=== PATIENT | female | born 2005 | race Caucasian/White ===

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

== ENCOUNTER 2025-06-04 14:56 | Emergency (ER) | payer OTHER ==
[~2025-06-04] VITALS: Ht 160 cm; Wt 54.5 kg
--- NOTE | 2025-06-04 17:34 | Physician Documentation ---
History of Present Illness ~ Chief Complaint: Finger pain Stated Complaint: FINGER LAC Time Seen by MD: 16:16 OK to notify your PCP?: Yes Primary Medical Doctor: none Source: patient Mode of Arrival: POV Exam Limitations: no limitations HPI 19-year-old female who is left-handed presenting with laceration to her left index finger. She states this occurred when she was chopping up food prior coming to the ER. It was difficult for her to get the bleeding to stop but now that the bleeding has stopped she realizes it is not as bad as she initially thought it was. Her tetanus immunization is up-to-date within the last 10 years. No decreased range motion of her finger. No injury to her nail plate. No other concerns or complaints. Patient does work in the food industry but states that this occurred at home not while at work. She is concerned about going to work tonight at 2:00 a.m. in his requesting a work note. Tetanus within 5 years: Yes Medication Reconciliation Allergies: Coded Allergies: No Known Allergies (Unverified , 10/13/08) Past Medical History Past Medical History: Extremity Fracture Past Surgical History: orthopedic surgeries Alcohol Use: None Drug Use: none Lives In: Home Review of Systems All Other Systems at this time: Reviewed and Negative Physical Exam Vital Signs: Temperature: 97.5, Source: Temporal, Heart Rate: 92, Respiratory Rate: 18, BP: 122/70, Pulse Oximetry: 99, Weight: 54.550 Oxygen Flow Rate: 0 Physical Exam General Appearance: Alert, WD/WN. NAD. HEENT: NCAT, PERRL, EOMI. Neck: Supple, trachea midline. Cardiovascular: RRR. No m/r/g. Lungs: CTAB. Breathing unlabored Extremities: Normal inspection. No edema. Skin: Warm/dry, normal color, left index finger: 5 mm vertical laceration just lateral to the lateral side of the nail plate, nail plate intact, no surrounding ecchymosis, edema or erythema, areas nontender, active range motion of index finger is full. Neurological: Alert and oriented x4, normal gait. Psychiatric: Affect congruent with mood. Progress Results/Orders Results/Orders Orders - SYDNEE TEJEDA Dermabond To Bedside (06/04/25 ) Vital Signs 06/04/25 06/04/25 15:06 17:52 Temp 97.5 97.5 Pulse 92 78 Resp 18 14 B/P (MAP) 122/70 124/80 Pulse Ox 99 96 O2 Flow Rate 0 Medical Decision Making Additional information obtaine: N/A Findings n/a General Diff Dx:Considerations: Unlikely: Other Shoulder Diff Dx:Consideration: Unlikely: Other Elbow Diff Dx:Considerations: Unlikely: Other Wrist Diff Dx:Considerations: Unlikely: Other Hand Diff Dx:Considerations: Unlikely: Other Finger Diff Dx:Considerations: Include: Abrasion, Cellulitis, Contusion, Dislocation, Fracture, Hematoma, Laceration, Neurovascular injury, Open fracture, Subungual hematoma, Other Departure Time of Disposition: 18:18 Disposition: 01 HOME / SELF CARE / HOMELESS Impression: Primary Impression: Laceration Condition: Stable Discharge Instructions: Laceration Care, Adult, [id number] Additional Instructions: do not get wet x 24-48 hours generally with dermabond and steri strips you want to wait 72hours to get wet, but due to size of laceration not being very big it should be okay after about 48hours if any signs or symptoms of infection return to er Departure Forms: Excuse form Work or School Excused From: Work Excuse beginning now through the following date: Jun 05, 2025 May Return but still avoid physical Activity from now until: Jun 06, 2025 Referrals: NO PRIMARY CARE PROVIDER (PCP) Education Educated: Patient Educated regarding: diagnosis, treatment, need for follow up Signature Scribe Signature: x Attestation: SYDNEE Navarrete Jun 04, 2025 17:34
[2025-06-04 17:52] VITALS: BP 124/80; PULSE 78; RESP 14; TEMP 97.5; O2SAT 96
== END 2025-06-04 17:54 | disposition home or self-care (01) ==
LOC: ER 14:56
DX: S61.211A Laceration without foreign body of left index finger without damage to nail, initial encounter (principal); X58.XXXA Exposure to other specified factors, initial encounter; Y93.89 Activity, other specified; Y92.009 Unspecified place in unspecified non-institutional (private) residence as the place of occurrence of the external cause; Y99.8 Other external cause status
CPT/HCPCS: 12001; 99282